=== PATIENT | female | born 1940 | race Caucasian/White ===

== ENCOUNTER → 2017-08-21 11:53 | Outpatient (CLI) | payer MEDICARE, SELFPAY ==
--- NOTE | 2017-08-21 | DI.MRI.S_ITS ---
PROCEDURE: MR LUMBAR SPINE WO CON INDICATIONS: LUMBAR SPINE PAIN TECHNIQUE: Noncontrast sagittal T1 spin echo and T2 fast echo, sagittal STIR, axial T1 and T2 fast spin echo through the lumbar spine. In cases with scoliosis, additional coronal T2 fast spin echo may be performed. COMPARISON: [facility] [place], CR, XR LUMBAR SPINE 2 OR 3 VIEWS, 05/17/2017, 10:59. [facility] [place], CR, XR LUMBAR SPINE 2 OR 3 VIEWS, 03/14/2017, 11:25. [facility], CT, L-SPINE WITHOUT CONTRAST, 06/03/2014, 10:29. [facility], MR, LUMBAR SPINE W&W/O CONTRAST, 05/13/2014, 12:41. [facility], CT, L-SPINE WITHOUT CONTRAST, 11/24/2014, 10:25. [facility], CR, XR LUMBAR SPINE 2 OR 3 VIEWS, 08/07/2017, 13:29. [facility], CR, L-SPINE 2-3 VIEWS, 01/29/2017, 9:00. FINDINGS: Image quality: Excellent. Alignment and Curvature: There is normal bony alignment. Bone Marrow: Marrow is of normal overall signal. No acute vertebral body compression fractures. Spinal Cord: Conus medullaris terminates at the L1-L2 level. Visualized cord demonstrates normal signal and size. Paraspinous Soft Tissues: No paravertebral masses. A 1 cm left adrenal nodule is partially visualized and appears unchanged compared to 06/03/2014. L1-L2: Minimal loss disc height. Mild disc desiccation. There is mild diffuse posterior disc bulge. The central canal is mildly narrowed, unchanged. No foraminal stenosis. L2-L3: Noee-xk-mdlhcnhp loss disc height and disc desiccation. There is mild diffuse posterior disc bulge and a disc osteophyte complex. Mild bilateral facet arthropathy. Moderate hypertrophy of ligamentum flavum. The central canal is severely narrowed. Moderate right and mild left foraminal stenosis. Central canal and foraminal stenosis are Increased compared to the last exam. L3-L4: Surgical fusion and discectomy. No central canal stenosis. Mild bilateral foraminal stenosis. L4-L5: Surgical fusion and discectomy. No central canal nor foraminal stenosis. L5-S1: Surgical fusion and discectomy. No central canal stenosis. Mild right foraminal stenosis. No left foraminal stenosis. IMPRESSION: 1. Multilevel degenerative and postsurgical changes as described. 2. Severe central canal stenosis at L2-L3. 3. Moderate foraminal stenosis at L2-L3 on the right, and mild foraminal stenoses at several levels as described. 4. A 1 cm left adrenal nodule, partially visualized and unchanged since 06/03/2014. Dictated by: Som Nye M.D. on 08/21/2017 at 13:02 Approved by: Som Nye M.D. on 08/21/2017 at 16:28
== END ==
PROVIDERS: Family Provider Family Medicine; PCP Family Medicine; Visit Provider Orthopaedic Surgery Orthopaedic Surgery of the Spine
DX: M51.36 Other intervertebral disc degeneration, lumbar region (principal); M48.061 Spinal stenosis, lumbar region without neurogenic claudication; M99.73 Connective tissue and disc stenosis of intervertebral foramina of lumbar region; E27.9 Disorder of adrenal gland, unspecified
CPT/HCPCS: 72148

== ENCOUNTER → 2017-11-15 09:38 | Outpatient (CLI) | payer MEDICARE, SELFPAY ==
[2017-11-15 11:58] LABS: Blood Urea Nitrogen 18 mg/dL (7-17); Calcium 10.5 mg/dL (8.4-10.2); Carbon Dioxide 27 mmol/L (22-32); Chloride 96 mmol/L (98-107); Estimated Glomerular Filt Rate > 60.0 mL/min (>60); Glucose 195 mg/dL (80-110); HEMOLYSIS < 15 (0-50); Potassium 4.8 mmol/L (3.4-5.1); Sodium 136 mmol/L (137-145)
== END ==
PROVIDERS: Family Provider Family Medicine; PCP Family Medicine; Visit Provider Internal Medicine Endocrinology, Diabetes & Metabolism
DX: E11.65 Type 2 diabetes mellitus with hyperglycemia (principal); E11.3299 Type 2 diabetes mellitus with mild nonproliferative diabetic retinopathy without macular edema, unspecified eye
CPT/HCPCS: 36415; 80048

== ENCOUNTER → 2018-05-22 11:35 | Outpatient (CLI) | payer MEDICARE, SELFPAY ==
--- NOTE | 2018-05-22 | DI.RAD.S_ITS ---
PROCEDURE: XR CHEST 2V INDICATIONS: COUGH TECHNIQUE: 2 views of the chest were acquired. COMPARISON: None. FINDINGS: Surgical changes and devices: None. Lungs and pleura: Lungs are clear. No pleural effusions or pneumothorax. Mediastinum: Mediastinal contours are normal. Heart size is normal. Bones and chest wall: No suspicious bony abnormalities. Soft tissues appear unremarkable. IMPRESSION: Normal for age, source of current cough symptoms is not seen. Dictated by: Lázaro Rahman M.D. on 05/22/2018 at 12:40 Approved by: Lázaro Rahman M.D. on 05/22/2018 at 12:40
== END ==
PROVIDERS: Family Provider Family Medicine; PCP Family Medicine; Visit Provider Family Medicine
DX: R05 Cough (principal)
CPT/HCPCS: 71046

== ENCOUNTER → 2018-07-31 10:10 | Outpatient (CLI) | payer MEDICARE, SELFPAY ==
--- NOTE | 2018-07-31 | DI.CT.S_ITS ---
PROCEDURE: CT ABDOMEN PELVIS W CON INDICATIONS: LOWER ADBOMINAL PAIN TECHNIQUE: After the administration of oral and intravenous contrast, 5 mm thick sections acquired from the diaphragms to the symphysis. 5 mm thick coronal and sagittal reformats were performed. For radiation dose reduction, the following was used: automated exposure control, adjustment of mA and/or kV according to patient size. COMPARISON: None. FINDINGS: Image quality: Excellent. ABDOMEN: Lung bases: Lung bases are clear. Heart size is normal. Solid organs: Liver is normal in size and enhancement. Gallbladder is surgically absent.. Mild resultant biliary ductal dilatation, within normal limits. Pancreas enhances normally. Spleen is normal in size and enhancement. No adrenal nodules. Kidneys are normal in size and enhancement, without hydronephrosis. Peritoneum and bowel: There is focal apparent circumferential thickening of the wall of the mid ascending colon. Reference image 48/2 and image 18/3. This is of uncertain significance, and may potentially represent focal peristalsis. The bowel is otherwise unremarkable. There is a large amount of fecal debris present. No free air, free fluid, or abscess cavity. Nodes and vessels: No retroperitoneal or mesenteric adenopathy. Aorta and inferior vena cava are normal in caliber. Diffuse vascular atherosclerotic calcifications. Miscellaneous: No ventral hernias. PELVIS: Genitourinary: Bladder wall thickness is normal. Miscellaneous: No inguinal hernias or adenopathy. Bones: No suspicious bony lesions. No vertebral body compression fractures. Remote left hemilaminectomy at L3 and L4, posterior lateral michelle and pedicle screw fixation bilaterally at L3-S1. IMPRESSION: 1. Large amount of fecal debris. 2. Apparent focal circumferential thickening in the region of the mid ascending colon. This may potentially be a true lesion or the result of peristalsis. Comment: If this patient has had recent colonoscopy, recommend direct visualization of this area via colonoscopy. Dictated by: Manuel Meraz M.D. on 07/31/2018 at 13:24 Approved by: Manuel Meraz M.D. on 07/31/2018 at 13:33
[2018-07-31 10:45] LABS: Estimated Glomerular Filt Rate > 60.0 mL/min (>60)
== END ==
LOC: CT 10:13 → LAB 10:14
PROVIDERS: Family Provider Family Medicine; PCP Family Medicine; Visit Provider Nurse Practitioner Family
DX: R10.32 Left lower quadrant pain (principal); R10.31 Right lower quadrant pain; R19.4 Change in bowel habit
CPT/HCPCS: 36415; 74177; 82565; Q9967

== ENCOUNTER 2018-11-07 12:15 | Day surgery (SDC) | payer MEDICARE, SELFPAY ==
[2018-10-24 12:28] VITALS: BMI 30.4
[2018-11-07] VITALS (9 sets, daily range): BP systolic 135–164; BP diastolic 48–70; PULSE 80–106; RESP 7–18; TEMP 36.3–36.8; O2SAT 95–98; BMI 30.4
--- NOTE | 2018-11-07 | DI.RAD.S_ITS ---
PROCEDURE: XR LUMBAR SPINE 1V INDICATIONS: L2-3 MICRODISCECTOMY TECHNIQUE: 1 view of the lumbar spine were acquired. COMPARISON: [facility], , L-SPINE 2-3 VIEWS, 01/29/2017, 9:00. FINDINGS: A lateral spot fluoroscopy image demonstrate a surgical port posterior to L2-L3. IMPRESSION: The surgical port is at the level of L2-L3. Dictated by: Som Nye M.D. on 11/07/2018 at 17:35 Approved by: Som Nye M.D. on 11/07/2018 at 17:37
[2018-11-07] MEDS: LACTATED RINGERS 1,000 ML 42 ML IV (13:11)
--- NOTE | 2018-11-07 13:29 | PM.PREOP ---
Pre-operative Note Interval Note History & Physical reviewed/Exam performed by Physician: Yes Changes to H&P: No
[2018-11-07] MEDS: CEFAZOLIN 2 GM/100 ML FROZ.PIGGY IV (14:04)
--- NOTE | 2018-11-07 14:33 | SUR.OPER ---
Prone on spine table, head in foam head support, padded chest and pelvic supports, gel pad at knees, lower legs supported by pillows; nipples, genitalia and toes free of pressure, arms secured on foam padded arm boards at <90 degrees abduction. Tape over blanket at thigh secured to table.
[2018-11-07] MEDS: BUPIVACAINE 0.25% W/ EPI 30 ML VIAL INJ (14:41)
[2018-11-07] MEDS: methylPREDNISolone acet DEPO 40 MG/ML VIAL INJ (14:49)
--- NOTE | 2018-11-07 14:53 | PM.OP.1 ---
Operative Date/Time/Diagnoses Date of procedure: 11/07/18 Time of procedure: 12:53 Pre-op diagnosis: 1. L2-3 spinal stenosis 2. Lumbar radiculopathy Post-op diagnosis: same Procedure & Clinicians Procedure: 1. L2-3 right microdiscectomy and laminotomy 2. Utilization of microsurgical technique and operating microscope Same procedure as scheduled: Yes Indications: Patient has been having chronic back pain and worsening lumbar radiculopathy. Patient failed multiple conservative management with worsening pain weakness and numbness in her lower extremity. Patient has been having difficulty performing activity of daily living. After discussing risks benefits of treatment options, patient elected proceed with surgery. Surgeon: Marilu [employer]ise [employer] Internship: Sadaf Mendez'Brien Click Yes if Unassisted: No Anesthesia Type: General Operative Notes Closure Type: primary Specimen(s): none sent Estimated Blood Loss (mL): 5 Procedure in detail: Patient was seen in the preoperative area. Risks and benefits of the surgery was discussed with the patient. Informed consent was obtained from the patient and placed in the chart. Surgical site was marked. Patient was taken to the operative room. General anesthesia was administered. Prophylactic antibiotic was given to the patient less than 30 min before the incision was made. Patient was placed into a prone position on the Jose table. Patient's back was then prepped and draped in the sterile fashion. Time-out was performed at this time. Using AP and lateral C-arm imaging the interval between L2-3 was identified and marked on patient's back. A 1 inch incision 1 in from midline was made on the right side. The fascia was incised in line with skin incision. Globus MARS retractors was placed inside the incision and docked onto the L2 lamina. Using microsurgical technique and operating microscope, a L2-3 laminotomy was performed using a Kerrison rongeur. Liagamentum flavum was resected at the site of the laminotomy. The disc space at L2-3 was identified. Microdiscectomy was performed by incising the annulus with #11 blade. Microcurettes and pituitary was used to removed herniated disc fragments of disc from the epidural space. After the microdiskectomy was completed, the area medial lateral superior and inferior to the area of the microdiskectomy was inspected and explored using a micro curette. No other impinging structure was identified. The wound was then irrigated with sterile normal saline. 40 mg Depo-Medrol was placed into the epidural space. The deep fascia was closed with 1-0 Vicryl. The subcutaneous tissue was closed with 2-0 Vicryl. The skin was closed with 4-0 Monocryl. Patient tolerated the procedure well. There were no complications. Patient was transferred recovery room in stable condition. Complications: none Condition: stable Disposition: same day surgery Plan for aftercare: Discharge to home
[2018-11-07] MEDS: INSULIN ASPART 100 UNIT/ML 10ML VIAL SUBCUT (15:20)
[2018-11-07] MEDS: HYDROCODONE/ACET 5/325 TABLET 1 TAB PO (15:31)
--- NOTE | 2018-11-07 16:40 | SUR.PHASEII ---
Discharge nurse note: VSS< O2 sat WNL, dresing with small amoutn of clear drainage no bleeding noted. No complaints of numbness and tingling to lower extremity. Discharge instructions reviewed with patient and . Discharged to motor home via wheelchair.
== END 2018-11-07 16:36 | disposition home or self-care (01) ==
PROVIDERS: Family Provider Family Medicine; PCP Family Medicine; Visit Provider Orthopaedic Surgery Orthopaedic Surgery of the Spine
PROC: (CPT 63030; principal; 2018-11-07 13:45)
DX: M51.16 Intervertebral disc disorders with radiculopathy, lumbar region (principal); M48.061 Spinal stenosis, lumbar region without neurogenic claudication; I10 Essential (primary) hypertension; E11.9 Type 2 diabetes mellitus without complications; Z79.84 Long term (current) use of oral hypoglycemic drugs; Z98.1 Arthrodesis status
CPT/HCPCS: 63030; 72020; 76000; J0690; J1030; J1100; J2250; J2405; J2704; J3010

== ENCOUNTER → 2019-10-22 11:13 | Outpatient (CLI) | payer MEDICARE, SELFPAY ==
--- NOTE | 2019-10-22 | DI.CT.S_ITS ---
PROCEDURE: CT LUMBAR SPINE WO CON INDICATIONS: Arthrodesis status TECHNIQUE: Noncontrast 3 mm thick sections acquired from the T12 level to the sacrum. Sagittal and coronal reformats were constructed. For radiation dose reduction, the following was used: automated exposure control. COMPARISON: [facility] [place], CR, XR LUMBAR SPINE 2 OR 3 VIEWS, 10/01/2018, 13:57. [facility], MR, MR LUMBAR SPINE WO CON, 08/21/2017, 12:15. [facility] [place], CR, XR LUMBAR SPINE 2 OR 3 VIEWS, 08/07/2017, 13:29. FINDINGS: Image quality: Excellent. Bones: Postsurgical changes compatible with L3-S1 TLIF. Orthopedic hardware is intact. No lucency is identified at the bone hardware interface. There is normal bony alignment. No acute vertebral body compression fractures. No suspicious lytic or blastic bony lesions. Central spinal caliber is of normal overall caliber. No pars defects. L1-L2: Disc height is normal. Mild, diffuse disc bulge. Mild bilateral facet hypertrophy. Mild narrowing of the central canal. Mild bilateral neural foraminal narrowing. No neural compression. L2-L3: Loss of disc height. Vacuum disc phenomenon. Moderate, diffuse disc bulge. Moderate to severe facet and moderate ligamentum flavum hypertrophy. Severe narrowing of the central canal. Moderate bilateral neural foraminal narrowing. Probable compression of the nerve roots of the cauda equina related to central canal narrowing. L3-L4: Status post fusion. Severe bilateral facet hypertrophy. No central canal narrowing. Moderate bilateral neural foraminal narrowing. No neural compression. L4-L5: Status post fusion. Moderate right and severe left facet hypertrophy. No central stenosis. Moderate bilateral neural foraminal narrowing. No neural compression. L5-S1: Status post fusion. Severe bilateral facet hypertrophy. Moderate narrowing of the central canal. Severe right and [id number] left neural foraminal narrowing with compression of the exiting right L5 nerve root. Soft tissues: No retroperitoneal masses or hematomas. Cholecystectomy clips noted. The visualized heart enlarged. Small hiatal hernia. Visualized aorta is normal in caliber. Scattered atherosclerotic calcifications involving the visualized abdominal and pelvic vasculature. IMPRESSION: 1. Stable postsurgical changes. 2. Multilevel degenerate disc disease. 3. Multilevel facet arthropathy. 4. Severe L2-L3 central canal narrowing with probable compression of the nerve roots of the cauda equina. 5. Severe right L5-S1 neural foraminal narrowing with compression of the exiting right L5 nerve root. Dictated by: Dianne Shaikh MD, PhD on 10/22/2019 at 15:10 Approved by: Dianne Shaikh MD, PhD on 10/22/2019 at 15:18
== END ==
PROVIDERS: Family Provider Family Medicine; PCP Family Medicine; Referring Provider Orthopaedic Surgery Orthopaedic Surgery of the Spine; Visit Provider Orthopaedic Surgery Orthopaedic Surgery of the Spine
DX: M54.5 Low back pain (principal); M51.16 Intervertebral disc disorders with radiculopathy, lumbar region; M47.26 Other spondylosis with radiculopathy, lumbar region; M47.27 Other spondylosis with radiculopathy, lumbosacral region; M48.061 Spinal stenosis, lumbar region without neurogenic claudication; M48.07 Spinal stenosis, lumbosacral region; K44.9 Diaphragmatic hernia without obstruction or gangrene; Z98.1 Arthrodesis status
CPT/HCPCS: 72131

== ENCOUNTER → 2020-01-27 09:15 | Outpatient (CLI) | payer MEDICARE, SELFPAY ==
[2020-01-27 10:20] LABS: Hematocrit 31.5 % (36-46); Hemoglobin 10.9 g/dL (12.0-16.0); Mean Corpuscular HGB Conc 34.6 % (30-36); Mean Corpuscular Hemoglobin 30.7 PG (26-34); Mean Corpuscular Volume 88.9 fL (80-100); Platelet Count 374 X10^3/uL (150-400); Red Blood Cell Count 3.54 X10^6/uL (4.0-5.2); Red Cell Distribution Width 13.2 % (11.6-14.8); White Blood Cell Count 10.1 X10^3/uL (4.5-11.0)
[2020-01-27 10:29] LABS: BUN Creatinine Ratio 18.8 (6-22); Blood Urea Nitrogen 18 mg/dL (7-17); Calcium 9.8 mg/dL (8.4-10.2); Carbon Dioxide 29 mmol/L (22-32); Chloride 103 mmol/L (98-107); Estimated Glomerular Filt Rate 56.4 mL/min (>60); Glucose 171 mg/dL (80-110); HEMOLYSIS < 15 (0-50); Potassium 4.1 mmol/L (3.4-5.1); Sodium 138 mmol/L (137-145)
[2020-01-27 11:56] LABS: Creatinine Urine Random 37.4 mg/dL; Protein (Total) Urine Random 23 mg/dL (0-12); Protein Creatinine Ratio Urine 0.61 GRAM/24H
== END ==
PROVIDERS: Family Provider Family Medicine; PCP Family Medicine; Referring Provider Student in an Organized Health Care Education/Training Program; Visit Provider Student in an Organized Health Care Education/Training Program
DX: N05.9 Unspecified nephritic syndrome with unspecified morphologic changes (principal); D70.9 Neutropenia, unspecified; D63.1 Anemia in chronic kidney disease; R80.9 Proteinuria, unspecified
CPT/HCPCS: 36415; 80048; 82570; 84156; 85027

== ENCOUNTER → 2020-03-09 10:55 | Outpatient (CLI) | payer MEDICARE, SELFPAY ==
--- NOTE | 2020-03-09 | DI.US.S_ITS ---
PROCEDURE: US RENAL COMPLETE INDICATIONS: Chronic kidney disease, stage 3 unspecified TECHNIQUE: Real-time scanning was performed of the kidneys and bladder, with image documentation. COMPARISON: [facility], CT, CT ABDOMEN PELVIS W GHAZALA, 07/31/2018, 11:58. FINDINGS: Kidneys: Kidneys are normal in size. Right kidney measures 11.4 cm long; left kidney measures 12.0 cm long. Right renal cortical thickness is 1.0 cm; left renal cortical thickness is 1 point cm. Renal cortical echotexture is normal. No hydronephrosis or nephrolithiasis. No suspicious solid mass lesions. Bladder: Pre-void bladder volume is 238 mL. Post-void residual is 115 mL. Pre-void images demonstrate no intraluminal masses or stones. On pre-void images, both ureteral jets are noted with color Doppler interrogation. (Of note, ureteral jets may not be detectable in up to 25% of cases due to insufficient differences in specific gravity between ureteral and bladder urine). Miscellaneous: No free pelvic fluid. IMPRESSION: 1. Normal ultrasound appearance of kidneys. No hydronephrosis. 2. A 115 mL postvoid residual in the urinary bladder. Dictated by: Som Nye M.D. on 03/09/2020 at 16:41 Approved by: Som Nye M.D. on 03/09/2020 at 16:44
== END ==
PROVIDERS: Family Provider Family Medicine; PCP Family Medicine; Referring Provider Student in an Organized Health Care Education/Training Program; Visit Provider Student in an Organized Health Care Education/Training Program
DX: N18.30 Chronic kidney disease, stage 3 unspecified (principal)
CPT/HCPCS: 76770

== ENCOUNTER → 2020-07-27 08:07 | Outpatient (CLI) | payer MEDICARE, SELFPAY ==
[2020-07-27 20:12] LABS: Hematocrit 32.9 % (36-46); Hemoglobin 11.1 g/dL (12.0-16.0)
[2020-07-27 20:17] LABS: BUN Creatinine Ratio 18.2 (6-22); Blood Urea Nitrogen 18 mg/dL (7-17); Calcium 10.1 mg/dL (8.4-10.2); Carbon Dioxide 28 mmol/L (22-32); Chloride 101 mmol/L (98-107); Estimated Glomerular Filt Rate 54.2 mL/min (>60); Glucose 163 mg/dL (80-110); HEMOLYSIS < 15 (0-50); Potassium 4.2 mmol/L (3.4-5.1); Sodium 139 mmol/L (137-145)
[2020-07-27 20:42] LABS: Creatinine Urine Random 55.8 mg/dL; Protein (Total) Urine Random 12 mg/dL (0-12); Protein Creatinine Ratio Urine 0.21 GRAM/24H
[2020-07-29 08:45] LABS: Parathyroid Hormone Int 24 pg/mL (15-65)
== END ==
PROVIDERS: Family Provider Family Medicine; PCP Family Medicine; Visit Provider Student in an Organized Health Care Education/Training Program
DX: N05.9 Unspecified nephritic syndrome with unspecified morphologic changes (principal)
CPT/HCPCS: 80048; 82570; 83970; 84156; 85014; 85018

== ENCOUNTER → 2021-01-12 10:57 | Outpatient (CLI) | payer MEDICARE, SELFPAY ==
--- NOTE | 2021-01-12 11:00 | DI.US.S_ITS ---
PROCEDURE: US PELVIC COMPLETE INDICATIONS: PELVIC PAIN TECHNIQUE: Real-time scanning was performed of the pelvic organs, with image documentation. Additional endovaginal scanning was necessary due to incomplete visualization of the adnexal and endometrial structures by transabdominal scanning. COMPARISON: [facility], CT, CT ABDOMEN PELVIS WITH CONTRAST, 12/09/2020, 12:26. [facility], US, US PELVIC+TRANSVAG, 11/15/2016, 11:36. FINDINGS: Uterus: Uterus is normal in size at 4.6 x 2.2 x 2.8 cm. The uterus demonstrates age-appropriate atrophy. Calcifications can be seen within the uterus. The endometrium measures 4 mm in combined thickness. Incidental note is made of nabothian cysts. Ovaries: Neither ovary is well seen on this study. No adnexal masses are seen on either side. Other: No pathologic free abdominal or pelvic fluid. A postvoid residual of 114 cc is measured. IMPRESSION: Unremarkable pelvic ultrasound for age. The endometrial stripe measures within normal limits for age at 4 mm. Moderate postvoid residual, 114 cc. Dictated by: Prince Suarez M.D. on 01/12/2021 at 14:19 Approved by: Prince Suarez M.D. on 01/12/2021 at 14:21
== END ==
PROVIDERS: Family Provider Family Medicine; PCP Family Medicine; Referring Provider Obstetrics & Gynecology; Visit Provider Obstetrics & Gynecology
DX: R10.2 Pelvic and perineal pain (principal)
CPT/HCPCS: 76830; 76856

== ENCOUNTER → 2021-03-21 10:55 | Outpatient (CLI) | payer MEDICARE, SELFPAY ==
--- NOTE | 2021-03-21 | DI.MRI.S_ITS ---
PROCEDURE: MR LUMBAR SPINE WO CON INDICATIONS: Radiculopathy, lumbar region TECHNIQUE: Noncontrast sagittal T1 spin echo and T2 fast echo, sagittal STIR, axial T1 and T2 fast spin echo through the lumbar spine. In cases with scoliosis, additional coronal T2 fast spin echo may be performed. COMPARISON: [facility] [place], CR, XR LUMBAR SPINE 2 OR 3 VIEWS, 10/01/2018, 13:57. [facility], , MR LUMBAR SPINE WO CON, 08/21/2017, 12:15. FINDINGS: Image quality: Excellent. Alignment and Curvature: There is normal bony alignment. Bones: Postsurgical changes compatible L3-S1 posterior fusion and left L3-L4 and L4-L5 laminotomies. Modic type 1 reactive endplate changes noted adjacent to the L2-L3 disc. No acute vertebral body compression fractures. Spinal Cord: Conus medullaris terminates at the L2 level. Visualized cord demonstrates normal signal and size. Paraspinous Soft Tissues: No paravertebral masses. T12-L1: Loss of disc signal. Mild, diffuse disc bulge. No central stenosis. No neural foraminal narrowing. No neural compression. L1-L2: Loss of disc signal. Mild, diffuse disc bulge. Mild bilateral facet hypertrophy. Mild narrowing of the central canal. No neural foraminal narrowing. No neural compression. L2-L3: Loss of disc signal and height. Moderate, diffuse disc bulge. Moderate bilateral facet hypertrophy. Moderate ligamentum flavum hypertrophy. Severe narrowing of the central canal with compression of the nerve roots of the cauda equina. Mild to moderate bilateral neural foraminal narrowing. L3-L4: Status post fusion. No central stenosis. Moderate bilateral neural foraminal narrowing. No neural compression. L4-L5: Status post fusion. Mild bilateral facet hypertrophy. No central stenosis. Mild to moderate bilateral neural foraminal narrowing. No neural compression. L5-S1: Status post fusion. Mild, diffuse disc bulge. Moderate bilateral facet hypertrophy. Mild narrowing of the central canal. Mild bilateral neural foraminal narrowing. No neural compression. IMPRESSION: 1. Postsurgical changes. 2. Multilevel degenerative disc disease. 3. Multilevel facet arthropathy. 4. Severe L2-L3 central canal narrowing with compression of the nerve roots of the cauda equina. 5. No severe neural foraminal narrowing. Dictated by: Dianne Shaikh MD, PhD on 03/21/2021 at 15:41 Approved by: Dianne Shaikh MD, PhD on 03/21/2021 at 15:45
== END ==
PROVIDERS: Family Provider Family Medicine; PCP Family Medicine; Referring Provider Physical Medicine & Rehabilitation Pain Medicine; Visit Provider Physical Medicine & Rehabilitation Pain Medicine
DX: M51.16 Intervertebral disc disorders with radiculopathy, lumbar region (principal); M51.17 Intervertebral disc disorders with radiculopathy, lumbosacral region; M47.26 Other spondylosis with radiculopathy, lumbar region; M47.27 Other spondylosis with radiculopathy, lumbosacral region; M48.061 Spinal stenosis, lumbar region without neurogenic claudication; M48.07 Spinal stenosis, lumbosacral region; Z98.1 Arthrodesis status
CPT/HCPCS: 72148

== ENCOUNTER → 2021-08-08 08:12 | Outpatient (CLI) | payer MEDICARE, SELFPAY ==
[2021-08-08 20:53] LABS: COVID19 - ORCAS (NP or Nasal) Negative (Negative)
== END ==
PROVIDERS: Family Provider Family Medicine; PCP Family Medicine; Visit Provider Family Medicine
DX: Z20.822 Contact with and (suspected) exposure to COVID-19 (principal)
CPT/HCPCS: C9803; U0003

== ENCOUNTER 2021-08-10 09:28 | Inpatient (IN) | payer MEDICARE, SELFPAY ==
[2021-08-05 07:21] VITALS: BMI 31.2
[2021-08-10] VITALS (13 sets, daily range): BP systolic 136–178; BP diastolic 46–78; PULSE 56–75; RESP 9–18; TEMP 35.5–36.9; O2SAT 94–100; BMI 31.2
[2021-08-10] MEDS: LACTATED RINGERS 1,000 ML 84 ML IV ×3 (12:08→17:03)
--- NOTE | 2021-08-10 12:58 | PM.PREOP ---
Pre-operative Note COVID-19 COVID-19 status: Negative Result date/Date tested (Pos, Neg/Pending): 08/09/21 Criteria for continued procedure: Expected advancement of disease process, Possibility delay results in more complex future surgery or treatment, Increased loss of function, Continuing or worsening of significant or severe pain and Deterioration of the patient's condition or overall health Interval Note History & Physical reviewed/Exam performed by Physician: Yes Changes to H&P: No
[2021-08-10] MEDS: CEFAZOLIN 2 GM/20 ML SYRINGE IV ×2 (14:00→20:15)
[2021-08-10] MEDS: BUPIVACAINE LIPOSOME 266 MG/20 ML VIAL INJ (14:53)
[2021-08-10] MEDS: BUPIVACAINE 0.25% (PF) 60 ML, EPINEPHrine 0.3 MG INJ (14:54)
--- NOTE | 2021-08-10 17:02 | DI.RAD.S_ITS ---
PROCEDURE: XR LUMBAR SPINE 2-3V INDICATIONS: L2-3 TLIF TECHNIQUE: 3 operative views of the lumbar spine were acquired. COMPARISON: [facility], [place], XR LUMBAR SPINE 1V, 11/07/2018, 14:33. FINDINGS: 3 operative C-arm images were utilized to help with extending a multilevel lumbar orthopedic fixation, which now includes the level above the previous fixation. There is bilateral michelle and pedicle screw fixation and interbody disc spacer placement. IMPRESSION: Operative imaging utilized for lumbar fusion surgery. Dictated by: Manuel Meraz M.D. on 08/10/2021 at 17:13 Approved by: Manuel Meraz M.D. on 08/10/2021 at 17:15
--- NOTE | 2021-08-10 17:12 | PM.OP.1 ---
Operative Date/Time/Diagnoses Date of procedure: 08/10/21 Time of procedure: 14:00 Pre-op diagnosis: 1. L2-3 spinal stenosis with neurogenic claudication 2. History of L3-S1 fusion with instrumentation Post-op diagnosis: same Procedure & Clinicians Procedure: 1. L2-3 posterolateral and posterior interbody fusion 2. L2-3 posterior interbody cage placement 3. L3-4 revision laminectomy with exploration of fusion 4. L2-3, L3-4 posterior segmental instrumentation with pedicle screw placement 5. L3-4 posterolatearl fusion 6. [place] of bone marrow from iliac crest through a separate incision 7. Utilization of microsurgical technique and operating microscope Same procedure as scheduled: Yes Indications: Patient has been having chronic back pain and worsening lumbar radiculopathy and symptoms of neurogenic claudication. Patient had history of lumbar fusion and has been doing well until approximately 9 months ago. Patient has symptoms of neurogenic claudication along with radiculopathy. Patient's MRI showed significant progress L2-3 spinal stenosis due to adjacent level disease. Patient failed multiple conservative management with worsening pain weakness and numbness in her lower extremity. Patient has been having difficulty performing activity of daily living. After discussing risks benefits of treatment options, patient elected proceed with surgery. Surgeon: Marilu Moise [employer] Specialist: Sharon Jennings Click Yes if Unassisted: No Anesthesia Type: General Operative Notes Closure Type: primary Specimen(s): none sent Prosthetic devices, grafts, tissues, transplants, or devices: Globus Revolve screws, Globus connecting hardware for revision posterior instrumentation Applied: catheter Estimated Blood Loss (mL): 50 Blood products transfused: none Procedure in detail: Patient was seen in the preoperative area. Risks and benefits of the surgery was discussed with the patient. Informed consent was obtained from the patient and placed in the chart. Surgical site was marked. Patient was taken to the operative room. General anesthesia was administered. Prophylactic antibiotic was given to the patient less than 30 min before the incision was made. Patient was placed into a prone position on the Jose table. Patient's back was then prepped and draped in the sterile fashion. Time-out was performed at this time. Using patient's previous scar incision was made over the L3-4 interval on the right side. Fascia was incised in line with skin incision. Patient's previously placed hardware over the L3-4 level was identified by dissecting down to the level the hardware using a Bovie and a Carr. The L3-L4 Tulip and rods was exposed and freed up of any scar tissue and calcified fusion mass in order to attach extension of posterior hardware. The Globus and MARS retractors was then placed into the wound and docked onto the L2 lamina using C-arm guidance. Using microsurgical technique and operating microscope a laminectomy facetectomy was performed by removing the L2 lamina and the L2-3 facet. The disc space at L2-3 level was identified next. And a total diskectomy was performed at L2-3 level. The endplates were decorticated using a rasp and shaver. The total diskectomy and decortication was performed at L2-3 level in order to to accomplish a L2-3 fusion. The local bone from the laminectomy and facetectomy was saved for local bone grafting. After the total diskectomy and decortication was completed, Globus Trifecta bone graft material was combined with local bone that was harvested earlier. At this time, a separate skin is incision was made over the iliac crest. A Jamshidi needle was inserted into the iliac crest through a separate skin incision. 5 cc of bone marrow aspiration was obtained through the separate skin incision using a Jamshidi needle from the iliac crest. The bone marrow aspiration was combined with local bone and the Trifecta bone grafting material. The bone grafting material was placed into the L2-3 interbody space along with a expandable cage. The cage was expanded to its maximum height using the torque limiting screwdriver. At this time a mirror image incision was made on the left side. The fascia was incised in line with the skin incision. Patient's previously placed hardware on the left side was then exposed in the same fashion as it was on the right side. The hardware was also found to have good purchase. The fusion mass on the left side was exposed by performing a left-sided hemilaminectomy at L3-4 level. The hemilaminectomy was performed using the Kerrison rongeur to undercut the lamina as well removing additional epidural scar tissue for purpose of decompressing the epidural space. The fusion mass was explored and was found have visible motion indicating pseudoarthrosis at L3-4 level. Globus MARS retractor was inserted and docked onto the L2-3, L3-4 posterolateral gutter. Using the power drill, posterior-lateral decortication was performed at L2-3, L3-4 level until bleeding cortical bone was identified. The remaining bone grafting material was placed into the L2-3, L3-4 posterior lateral gutter he order to accomplish posterolateral fusion at the L2-3, L3-4 level. Using the double C-arm technique, pedicle screws were placed into the L2 pedicles on the right side. This was done by placing the Jamshidi needle into the pedicles, then placing the guidewires over the Jamshidi needle, and finally placing the cannulated screws over the guidewires on the right side. A L2 pedicle screw was placed into the left side using the same technique over time she and guidewire. The UNI5us expansion system was used to attach the L2 pedicle screw to the michelle between L3-4 pedicle on both sides. After all locking bolt was tightened down using torque limiting drivers, locking michelle was then placed into the tulips and locked into place used torque limiting screwdriver. After the pedicle screws were placed, 2 titanium rods was locked into the heads of the pedicle screws using locking caps and torque limiting screwdriver. All hardware was found to have good purchase. After all the hardware was placed, and confirmed with AP and lateral C-arm imaging, the wound was then irrigated with sterile normal saline and packed with Ray-Rosemarie gauze for 3 min to accomplish hemostasis. After the gauze was removed the deep fascia was closed with #1 Vicryl suture. The subcutaneous layer was closed with 2-0 Vicryl. The skin was closed with skin ricky. Patient tolerated the procedure well. There were no complications. Neuro monitoring was used throughout the entire case. Complications: none Post-operative Condition: stable Disposition: PACU Plan for aftercare: Admit to inpatient hospital
[2021-08-10] MEDS: HYDROCODONE/ACET 5/325 TABLET 1 TAB PO ×2 (17:40→18:12)
[2021-08-10] MEDS: fentaNYL 100 MCG/2 ML INJ IV ×2 (18:01→18:12)
--- NOTE | 2021-08-10 18:43 | SUR.PHASEI ---
Report called to AC RN including pain, a&o, davis, oral intake, ericka ashley. VSS, Patient appears comfortable. Dressing CDI
--- NOTE | 2021-08-10 19:17 | PC.NURSE ---
Pt arrived from PACU at 1855, A&Ox4, c/o 8/10 back pain. VSS on RA, no SOB, lungs CTA. Numbness and tingling to bilat LE at baseline, unchanged since surgery, CMS otherwise intact. Kennedy catheter draining light yellow urine. Pt oriented to vital sign schedule, call light and room. Will continue to monitor.
[2021-08-10] MEDS: SODIUM CHLORIDE 0.9% 1,000 ML 100 ML IV (20:14)
[2021-08-10] MEDS: SENNOSIDES 8.6 MG TABLET 17.2 MG PO (20:15)
[2021-08-10] MEDS: DOCUSATE 100 MG CAPSULE PO (20:15)
[2021-08-10] MEDS: ATORVASTATIN 20 MG TABLET PO (20:15)
[2021-08-10] MEDS: METOPROLOL IR 25 MG TABLET PO (20:15)
[2021-08-10] MEDS: LACTOBACILLUS ACIDOPHILUS TABLET 2 EACH PO (20:15)
[2021-08-11 00:30] VITALS: BP 146/66; PULSE 63; RESP 17; TEMP 36.1; O2SAT 98
[2021-08-11] MEDS: CEFAZOLIN 2 GM/20 ML SYRINGE IV (04:58)
[2021-08-11] MEDS: SODIUM CHLORIDE 0.9% 1,000 ML 100 ML IV (05:01)
[2021-08-11 05:18] VITALS: BP 151/57; PULSE 75; RESP 16; TEMP 36.3; O2SAT 97
[2021-08-11 06:10] LABS: Hematocrit 28.4 % (36-46); Hemoglobin 9.9 g/dL (12.0-16.0)
[2021-08-11 07:59] VITALS: BP 146/67; PULSE 76; RESP 16; O2SAT 95
--- NOTE | 2021-08-11 07:59 | PM.PNPO.1 ---
Subjective Subjective Date Patient Seen: 08/11/21 Time Patient Seen: 07:59 Interval history: Lying in bed, complaining of 'sciatic' pain that goes across low back and into legs, similar to before surgery. States that she has a routine for dealing with this pain that involves getting up and walking around. Has not been OOB yet. H/o diabetes; says she gets quite ill if FBG below 110. Exam Vital Signs (past 8 hours): - 08/11/21 00:30 08/11/21 05:18 Temperature 97 F L 97.3 F L Pulse Rate 63 75 Respiratory Rate 17 16 Blood Pressure 146/66 H 151/57 H Pulse Oximetry 98 97 Oxygen Delivery Method Room Air Narrative Exam Narrative: 5/5 strength in hip flexors, quadriceps, hamstrings, DF, PF, EHL bilaterally. Sensation to light touch intact in BLE. Calves soft, compressible, nontender and without palpable cords or masses. Low back dressing placed intraoperatively is CDI. Objective Labs Result Diagrams: 08/11/21 05:37 Labs: Laboratory Results - last 24 hr 08/11/21 05:37 Hgb 9.9 L Hct 28.4 L PFSH Medical History (Updated 08/11/21 @ 10:24 by Sharon Jennings PA-C) Anemia (~2010) Anemia in chronic kidney disease Chicken pox Chronic back pain (~2011) Chronic pruritic rash in adult Diabetes Diabetic retinopathy Edema GERD (gastroesophageal reflux disease) HLD (hyperlipidemia) HTN (hypertension) Iron deficiency anemia Kidney disease (~2018) Measles Mumps Obesity (BMI 30.0-34.9) Psoriasis Renal cyst, right Stage 2 chronic kidney disease Type 2 diabetes mellitus (~1988) Unspecified osteoarthritis, unspecified site (~2019) Surgical History (Updated 08/11/21 @ 10:24 by Sharon Jennings PA-C) Anesthesia History of back surgery History of cataract removal with insertion of prosthetic lens (~2014) History of cholecystectomy History of colonoscopy History of laparoscopy (~1977) History of lumbar fusion (01/29/17) Hx of microdiscectomy (11/07/18) Hx of tonsillectomy S/P thyroid biopsy (04/25/17) Family History (Updated 02/13/21 @ 21:27 by Raven Mariee) Father Diabetes mellitus Brother Diabetes mellitus Grandmother Diabetes mellitus Grandfather Stroke Social History household members: spouse Smoking Status: Never smoker alcohol intake: never Assessment & Plan Post-op Assessment and plan (1) S/P lumbar fusion: Assessment and Plan narrative: PT. D/c susan. Pts chart states h/o reaction to oxycodone, will continue hydrocodone/APAP, d/c plain APAP, add Vistaril for muscle spasm. May benefit from short course of steroids if leg pain continues. Current plan to d/c home tomorrow if she progresses well w/ PT today. (2) Acute postoperative anemia due to expected blood loss: Assessment and Plan narrative: Asymptomatic, no intervention needed at this time. (3) Diabetes: Assessment and Plan narrative: Pt has received glipizide and metformin, refused insulin this morning. Fingersticks have ranged 161-217 since admission. Continue home meds. (4) Essential hypertension: Assessment and Plan narrative: Continue home meds. (5) Obesity (BMI 30.0-34.9): Postoperative Procedures: Procedures Operation Date: 08/10/21 11:15 Actual Procedure Side Surgeon p L2-3 TLIF w/ extension of hardware L2 to Previous L3-S1 fusion Marilu Moise MD Postoperative day: 1 Quality VTE Deep Vein Thrombosis/Pulmonary Embolism Present on Admission: No
[2021-08-11] MEDS: glipiZIDE 5 MG TABLET 10 MG PO (08:43)
[2021-08-11] MEDS: ASPIRIN 81 MG CHEW TAB PO (08:44)
[2021-08-11] MEDS: DOCUSATE 100 MG CAPSULE PO (08:44)
[2021-08-11] MEDS: LACTOBACILLUS ACIDOPHILUS TABLET 2 EACH PO (08:44)
[2021-08-11] MEDS: HYDROCODONE/ACET 10/325 TABLET 1 TAB PO (08:44)
[2021-08-11 08:45] VITALS: BP 146/67; PULSE 76
[2021-08-11] MEDS: METOPROLOL IR 25 MG TABLET PO (08:45)
[2021-08-11] MEDS: lisinopriL 20 MG TABLET PO (08:45)
[2021-08-11] MEDS: METFORMIN HCL 500 MG TABLET 1000 MG PO (08:45)
[2021-08-11] MEDS: hydrOXYzine pamoate 25 MG CAPSULE PO (08:46)
--- NOTE | 2021-08-11 09:42 | CM.DANOTE ---
Addendum entered by ALBERTO Guadarrama 08/11/21 13:51: ADD: PT recommends Home w/family, patient eager to DC tomorrow Original Note: Initial DCP Assessment Note Pt is a 81 yo female, resident of [facility], now POD#1 from spinal surgery by Dr Moise PCP: Karel Doe Payer: MCR/[employer] Reviewed chart; Therapy evals pending today for patient. Patient has planned for return home w/family to assist CM team following closely and will plan to assess for DC needs after therapy team assesses and provides dispo recs ALBERTO Philip Discharge Planning/Care Management CM Discharge Assessment Start: 08/11/21 09:31 Freq: Status: Active Protocol: Document 08/11/21 09:31 ISH (Rec: 08/11/21 09:42 ISH [id number]) Discharge Planning Assessment Assigned Games Dealer ALBERTO Medina DPOA/Assigned Designee Name Rafal () Contact Information [phone] Advance Directives? Yes Advance Directives on File Yes History Provided By Patient,Medical Record Prior Living Arrangements House Household Members spouse Type of transporation used prior to Relies on Others admit Comment [facility] Independent with ADL's Yes: Poor activity tolerance Is patient alert and oriented? Yes Comment TBD. Therapy evals pending Discharge Plan Home Transportation Arrangement Family Referrals Initiated None needed Additional Comment Awaiting therapy evals today
--- NOTE | 2021-08-11 10:31 | PT.IIE ---
Current Diagnoses Acute posthemorrhagic anemia (08/10/21) Type 2 diabetes mellitus without complications (08/10/21) Obesity, unspecified (08/10/21) Essential (primary) hypertension (08/10/21) Spinal stenosis, lumbar region with neurogenic claudication (08/10/21) Arthrodesis status (08/10/21) Surgery Performed Operation Date: 08/10/21 11:15 Actual Procedures p L2-3 TLIF w/ extension of hardware L2 to Previous L3-S1 fusion - Marilu Moise MD Surgical History (Last Updated 08/05/21 @ 07:24 by Mayra Mendiola RN) Anesthesia Medical History (Last Updated 08/11/21 @ 10:24 by Sharon Jennings PA-C) Anemia (~2010) Anemia in chronic kidney disease Chicken pox Chronic back pain (~2011) Chronic pruritic rash in adult Diabetes Diabetic retinopathy Edema GERD (gastroesophageal reflux disease) HLD (hyperlipidemia) HTN (hypertension) Iron deficiency anemia Kidney disease (~2018) Measles Mumps Obesity (BMI 30.0-34.9) Psoriasis Renal cyst, right Stage 2 chronic kidney disease Type 2 diabetes mellitus (~1988) Unspecified osteoarthritis, unspecified site (~2019) Physical Therapy Inpatient Evaluation/Re-Eval M1 PT/OT-IP Prior Functional Status Start: 08/11/21 10:17 Freq: Status: Active Protocol: Document 08/11/21 10:18 BC (Rec: 08/11/21 10:31 BC [id number]) Medical Review Prior Functional Status Medical History Reviewed Yes Mobility and Gait Independent with ambulation on home. Activities of Daily Living and IADL's Independent Prior Functional Level (Other details) She enjoys caring for her dog. Lives with spouse. Retired bank employee. Reports multiple family members ( nephews and KYLE) that live a few minutes from her and most are either closed circuit screen watcher/firefighters. Social History Household Members spouse Living Arrangements House Number of Floors (Floors) Two Floors Number of Stairs To Enter/Railing? 1 flight of stairs to enter home. Landing at top prior to 4 more steps. Bilateral railing. Home Equipment Front Wheel Walker,Straight Cane Employment Status Retired M2 PT-IP Current Condition Start: 08/11/21 10:17 Freq: Status: Active Protocol: Document 08/11/21 10:18 BC (Rec: 08/11/21 10:31 [id number]) Physical Therapy Current Condition Current Condition Evaluation Date 08/11/21 Treatment Diagnosis gait abnormality Onset Date 08/10/21 M3 PT-IP Subjective Start: 08/11/21 10:17 Freq: Status: Active Protocol: Document 08/11/21 10:18 BC (Rec: 08/11/21 10:31 [id number]) Subjective Physical Therapy Visit Type Type Initial Evaluation Visit Start Time 08:50 Visit Stop Time 09:20 Total Visit Minutes 25 Physical Therapy Visit Comments Patient Comments Pt reports sciatica in bilateral hips and thinks she has fibromyalgia. Patient Goals States she hopes to go home tomorrow. Therapy Pain Assessment Pain When Pain Assessed At Rest Pain Present Pain Present Pain Reported Location Lower Back Intensity 4 Description Aching,Burning M4 PT-IP Mobility and Gait Start: 08/11/21 10:17 Freq: Status: Active Protocol: Document 08/11/21 10:18 (Rec: 08/11/21 10:31 [id number]) PT-Bed Mobility Assessment Scooting Scooting to Edge of Bed Independent Scooting Up and Down in Bed Independent PT-Transfer Assessment Sit to and From Stand Sit to and from Stand Standby Assistance Equipment Transfer Assistive Device Gait Belt,Front Wheeled Walker Transfers Transfer Destination Chair Transfer Technique Stand Step Pivot Transfer Ability Level of Assist Standby Assistance Comments Mobility Comments Using BUE's for support/ balance but not significant amount of pushing/pulling noted. Gait Assessment Gait Gait Assistance Required: Standby Assistance Distance (Feet) 20 Assistive Devices Assistive Device Gait Belt,Front Wheeled Walker Orthotic/Prosthetic Devices or Brace: No Gait Deviations General Gait Pattern Decreased Stride Length, Decreased Feet Clearance,Wide Based Gait Factors Limiting Gait Function Factors Limiting Gait Function Pain Comments Gait Comments Ambulation rachel is slow but no LOB. Reports pain improves with upright stance and sitting in chair vs EOB. PT-Balance Assessment Sitting Balance and Reactions Static Sitting Balance Ability Normal Dynamic Sitting Balance Ability Normal Standing Balance and Reactions Static Standing Balance Ability Good Dynamic Standing Balance Ability Fair Device Used FWW M5 PT-IP Objective Assessments Start: 08/11/21 10:17 Freq: Status: Active Protocol: Document 08/11/21 10:18 (Rec: 08/11/21 10:31 [id number]) Orientation Orientation/Cognition Level of Alertness Alert Orientation Name,Date,Place,Situation Safety Awareness Understands Safety Issues Gross Range of Motion Upper Extremity ROM Assessment Within Functional Limits Lower Extremity ROM Assessment Within Functional Limits Strength Upper Extremity Strength Assessment Within Functional Limits Lower Extremity Strength Assessment Within Functional Limits Comments Strength Comments Grossly functional UE strength - no formal MMT BLE strength 4+ to 5/5 Coordination Assessment Gross Coordination Gross Coordination WNL Sensation Assessment Comments Sensation Comments Reports burning/tingling across pelvis bilaterally. Calls this sciatica and states she has had it for awhile. Muscle Tone Muscle Tone WNL Yes M6 PT-IP Treatment Start: 08/11/21 10:17 Freq: Status: Active Protocol: Document 08/11/21 10:18 BC (Rec: 08/11/21 10:31 [id number]) Physical Therapy Treatment Education Education Provided Precautions,Post-Op Packet, Safety Brace Education Patient M7 PT-IP Assessment and Plan Start: 08/11/21 10:17 Freq: Status: Active Protocol: Document 08/11/21 10:18 BC (Rec: 08/11/21 10:31 [id number]) PT Summary Assessment and Plan Potential Rehabilitation Potential Excellent Status of Condition at Evaluation Stable Summary Impairments Pain Progress Towards Goals Progressing Toward Goals Assessment Summary Pt admitted s/p L2-3 fusion and laminectomy. Prior fusion of L3 to S1. Pt reports a long hx of spinal surgeries ~5-6. She lives with spouse in a two story home with a full flight to enter the home. She has family within minutes which include several firemen and closed circuit screen watcher. She has a FWW and SPC. Pt reports her PLOF as independent with intermittent use of a SPC/walking stick. CLOF: Pt is requiring just SBA for safety and cues on precautions with transfers and ambulation in room. Pt's breakfast arrived so PT to return in PM to assess stairs and add'l gait distance. Anticipate d/c to home with said family support and her current DME she reports having . Pt remained in chair with call light/phone and tray table in reach. Goals Bed Mobility Goal Standby Assistance Transfer Goal Independent Gait Goal Independent Gait Distance 100 Other Goals Pt will ascend/descend full flight of stairs with railing and CGA to SBA. Days to Meet Goals 3 Frequency of Treatment Frequency Of Treatment Twice a Day Treatment Plan Physical Therapy Treatment Plan Bed Mobility Training,Transfer Training,Gait Training, Therapeutic Exercise,Balance Retraining,Post Op Education, Discharge Planning, Neuromuscular Re-ed, Coordination Retraining Precautions Lumbar Precautions Log Roll,No Twisting,Limit Bending,Lifting Restriction of 10 lbs,Gait Belt above Incisional Area Recommendations To Nursing Amount of Assist Needed Standby Assistance Discharge Recommendations PT Discharge Recommendations Home with Assistance Transportation Needs at Discharge Private Vehicle
--- NOTE | 2021-08-11 10:50 | OT.IP.EVAL ---
Current Diagnoses Acute posthemorrhagic anemia (08/10/21) Type 2 diabetes mellitus without complications (08/10/21) Obesity, unspecified (08/10/21) Essential (primary) hypertension (08/10/21) Spinal stenosis, lumbar region with neurogenic claudication (08/10/21) Arthrodesis status (08/10/21) Surgery Performed Operation Date: 08/10/21 11:15 Actual Procedures p L2-3 TLIF w/ extension of hardware L2 to Previous L3-S1 fusion - Marilu Moise MD Past Medical History (Last Updated 08/11/21 @ 10:24 by Sharon Jennings PA-C) Anemia (~2010) Anemia in chronic kidney disease Chicken pox Chronic back pain (~2011) Chronic pruritic rash in adult Diabetes Diabetic retinopathy Edema GERD (gastroesophageal reflux disease) History of back surgery History of cataract removal with insertion of prosthetic lens (~2014) History of cholecystectomy History of colonoscopy History of laparoscopy (~1977) History of lumbar fusion (01/29/17) HLD (hyperlipidemia) HTN (hypertension) Hx of microdiscectomy (11/07/18) Hx of tonsillectomy Iron deficiency anemia Kidney disease (~2018) Measles Mumps Obesity (BMI 30.0-34.9) Psoriasis Renal cyst, right S/P thyroid biopsy (04/25/17) Stage 2 chronic kidney disease Type 2 diabetes mellitus (~1988) Unspecified osteoarthritis, unspecified site (~2019) Surgical History (Last Updated 08/05/21 @ 07:24 by Mayra Mendiola RN) Anesthesia History of back surgery History of cataract removal with insertion of prosthetic lens (~2014) History of cholecystectomy History of colonoscopy History of laparoscopy (~1977) History of lumbar fusion (01/29/17) Hx of microdiscectomy (11/07/18) Hx of tonsillectomy S/P thyroid biopsy (04/25/17) Occupational Therapy Inpatient Evaluation/Re-Eval M1 PT/OT-IP Prior Functional Status Start: 08/11/21 10:17 Freq: Status: Active Protocol: Document 08/11/21 10:18 BC (Rec: 08/11/21 10:31 BC [id number]) Medical Review Prior Functional Status Medical History Reviewed Yes Mobility and Gait Independent with ambulation on home. Activities of Daily Living and IADL's Independent Prior Functional Level (Other details) She enjoys caring for her dog. Lives with spouse. Retired bank employee. Reports multiple family members ( nephews and KYLE) that live a few minutes from her and most are either tallier/firefighters. Social History Household Members spouse Living Arrangements House Number of Floors (Floors) Two Floors Number of Stairs To Enter/Railing? 3 steps bilateral rail, melanie and another 3 steps with bilateral rails to get into the house. 3 steps with left rail to get into the motorhome. Home Equipment Front Wheel Walker,Straight Cane Employment Status Retired M2 OT-IP Current Condition Start: 08/11/21 14:44 Freq: Status: Active Protocol: Document 08/11/21 10:11 [facility] (Rec: 08/11/21 15:01 [facility] [id number]) Occupational Therapy Current Condition Current Condition Evaluation Date 08/11/21 Treatment Diagnosis s/p L2-3 TLIF with extension of hardware L2 to previous L3- S1 fusion Diagnosis Onset Date 08/10/21 Post Operative Precautions Lumbar Precautions Log Roll,No Twisting,Limit Bending,Lifting Restriction of 10 lbs,Gait Belt above Incisional Area M3 OT- IP Subjective and Pain Start: 08/11/21 14:44 Freq: Status: Active Protocol: Document 08/11/21 10:11 [facility] (Rec: 08/11/21 15:01 [facility] [id number]) OT- Subjective Occupational Therapy Visit Type Type Initial Evaluation Visit Start Time 10:11 Visit Stop Time 10:50 Total Visit Minutes 39 Occupational Therapy Visit Comments Patient Comments Pt's in the room and pt agreed to do OT eval. Patient/Caregiver Goals TO go home. OT Pain Assessment Pain When Pain Assessed At Rest Pain Present Pain Present Pain Reported Location Lower Back Intensity 1 Scale Used Numeric (0 - 10) M4 OT- IP ADL's Start: 08/11/21 14:44 Freq: Status: Active Protocol: Document 08/11/21 10:11 [facility] (Rec: 08/11/21 15:01 [facility] [id number]) OT [id number] Comments OT Self-Feeding Comments NOt at meal time. OT ADL-Grooming General Evaluation Grooming Ability Independent OT ADL-Oral Care Comments Oral Care Comments VC to spit into a cup or hinge at her hips to spit to best follow her back precautions. OT ADL-Dressing Comments OT Dressing Comments Pt states her will assist with compression stocking. Educated pt on use of dampener to assist for LB dressing needs. OT ADL-Toileting General Evaluation Toileting Ability Standby Assistance Comments OT Toileting Comments Pt would benefit form a bidet or toilet paper aid t assist with hygiene needs. Pt agreed would be best to wear pads or brief at night. OT ADL-Bathing Comments OT Bathing Comments Not performed. M5 OT- IP IADL's Start: 08/11/21 14:44 Freq: Status: Active Protocol: Document 08/11/21 10:11 [facility] (Rec: 08/11/21 15:01 [facility] [id number]) OT-Instrumental Activities of Daily Living Home Safety Awareness Home Safety Comments Pt a bit groggy and forgetful at this time and would be best for her to assist wit her needs.Nursing notified. M6 OT- IP Functional Cognition Start: 08/11/21 14:44 Freq: Status: Active Protocol: Document 08/11/21 10:11 [facility] (Rec: 08/11/21 15:01 [facility] [id number]) Cognitive Factors Limiting Selfcare Function Cognitive Ability Level of Alertness Alert Patient Orientation Name,Place,Situation Attention Span Ability Capable of Focused Attention, Capable of Sustained Attention Ability to Follow Commands Able to Follow One Step Commands Safety Awareness Decreased Ability to Apply Precautions,Underestimates Need for Assistance Cognitive Comments Cognitive Assessment Comments Pt needing reminders for back precautions and log rolling and morales not seem to recall even thought per pt this is her 6th back surgery. M7 OT- IP Mobility and Balance Start: 08/11/21 14:44 Freq: Status: Active Protocol: Document 08/11/21 10:11 [facility] (Rec: 08/11/21 15:01 [facility] [id number]) OT- Bed Mobility Assessment Rolling Level of Assistance Contact Guard Assistance Supine to Sit Supine to Sit Assist Moderate Assistance Sit to Supine Sit to Supine Assist Moderate Assistance OT-Transfer Assessment Sit to and From Stand Sit to and from Stand Minimal Assistance,Moderate Assistance Transfers Transfer Ability Minimal Assistance Technique Transfer Destination Bed,Chair,Toilet Transfer Technique Stand Step Pivot Devices Transfer Assistive Devices Gait Belt,Front Wheeled Walker Comments Mobility Comments Able to go over log rolling and FWW safety with pt's . Pt insists on pulling on the FWW to stand instead on pushing up from surface sitting on. Therefore educated pt's to help keep the FWW steady if pt insisting on pulling up on the FWW to stand. It would be beneficial for pt and to practice more for mobility needs. OT- Gait Assessment Gait Gait Assistance Required: Contact Guard Assist Assistive Devices Assistive Device Gait Belt,Front Wheeled Walker OT- Balance Assessment Sitting Balance and Reactions Static Sitting Balance Ability Good Dynamic Sitting Balance Ability Good Standing Balance and Reactions Static Standing Balance Ability Fair M8 OT- IP Objective Assessments Start: 08/11/21 14:44 Freq: Status: Active Protocol: Document 08/11/21 10:11 [facility] (Rec: 08/11/21 15:01 [facility] [id number]) OT-Muscle Tone Assessment Muscle Tone WNL Yes M9 OT- IP Assessment and Plan Start: 08/11/21 14:44 Freq: Status: Active Protocol: Document 08/11/21 10:11 [facility] (Rec: 08/11/21 15:01 [facility] [id number]) OT Summary Assessment and Plan Potential Rehabilitation Potential Good Analytic Complexity at Evaluation Low Summary OT Impairments Pain,Balance,Functional Cognition,Functional Mobility, Grooming,Dressing,Toileting, Bathing,Toilet Transfers, Shower Transfers Progress Towards Goals Progressing Toward Goals Assessment Summary Pt low complexity and main barriers are a bit insistent on doing things her way and needing cues to follow her back precautions. Pt tends to forget, twist and needing reminders to push up from surfaces coming up to stand from , as pt insists on grabbing the FWW to stand. Able to initiate caregiver training with pt's and would benefit from more practice as pt is a bit groggy today. Pt to go home with medically stable. Goals Grooming Goal Independent Dressing Goal Minimal Assistance Toileting Goal Minimal Assistance Bathing Goal Minimal Assistance Toilet Transfer Goal Independent Shower Transfer Goal Contact Guard Assistance Patient/Caregiver Education Goal Caregiver Independent Assisting Patient Days to Meet Goals 5 Frequency of Treatment Frequency Of Treatment Once a Day Treatment Plan OT Treatment Plan ADL Training,Functional Cognition Training,Functional Mobility,Patient/Family Education,Discharge Planning Other Treatment Recommendations and Next shower if still here Treatment Focus Discharge Recommendations OT Discharge Recommendations Home with 23/10 Assist Available Transportation Needs at Discharge Private Vehicle
[2021-08-11 11:00] VITALS: BP 147/55; PULSE 57; RESP 18; TEMP 36.6; O2SAT 98
--- NOTE | 2021-08-11 14:05 | PT.IPTN ---
Current Diagnoses Acute posthemorrhagic anemia (08/10/21) Type 2 diabetes mellitus without complications (08/10/21) Obesity, unspecified (08/10/21) Essential (primary) hypertension (08/10/21) Spinal stenosis, lumbar region with neurogenic claudication (08/10/21) Arthrodesis status (08/10/21) Surgery Performed Operation Date: 08/10/21 11:15 Actual Procedures p L2-3 TLIF w/ extension of hardware L2 to Previous L3-S1 fusion - Marilu Moise MD Physical Therapy Treatment Note M2 PT-IP Current Condition Start: 08/11/21 10:17 Freq: Status: Active Protocol: Document 08/11/21 10:18 BC (Rec: 08/11/21 10:31 BC [id number]) Physical Therapy Current Condition Current Condition Evaluation Date 08/11/21 Treatment Diagnosis gait abnormality Onset Date 08/10/21 M3 PT-IP Subjective Start: 08/11/21 10:17 Freq: Status: Active Protocol: Document 08/11/21 13:40 [place] (Rec: 08/11/21 15:38 KS [id number]) Subjective Physical Therapy Visit Type Type Treatment Note Visit Start Time 13:40 Visit Stop Time 14:05 Total Visit Minutes 25 Number of [employer] WORKER Visits 1 Physical Therapy Visit Comments Patient Comments Pt agreeeable to working w/ therapy and wanting to go home . M4 PT-IP Mobility and Gait Start: 08/11/21 10:17 Freq: Status: Active Protocol: Document 08/11/21 13:40 KS (Rec: 08/11/21 15:38 KS [id number]) PT-Transfer Assessment Sit to and From Stand Sit to and from Stand Standby Assistance Equipment Transfer Assistive Device Gait Belt,Front Wheeled Walker Transfers Transfer Destination Chair Transfer Technique Pt ambulated w/ FWW Transfer Ability Level of Assist Standby Assistance Comments Mobility Comments Pt in chair upon arrival and agreeable to complete stair training, first sit<>Stand SBA w/ FWW and ambulated to toilet. After voiding, pt ambulated to w/c for transport to stairs for energy conservation. Pt ascended/ descended 3 steps w/ bilateral rails SBA w/ step to pattern. Pt confirms she has 3 steps w / bilateral rails, landing, than 3 additional steps to enter home. W/c most distance back to room, but ambulated final ~30 ft SBA back to chair SBA. Pt feels ready to go home w/ spouse and family assisting as needed. Gait Assessment Gait Gait Assistance Required: Standby Assistance,1 Person Assist Distance (Feet) 50 Assistive Devices Assistive Device Gait Belt,Front Wheeled Walker Orthotic/Prosthetic Devices or Brace: No Gait Deviations General Gait Pattern Decreased Stride Length, Decreased Feet Clearance,Wide Based Gait Comments Gait Comments Ambulation rachel is slow but no LOB. Reports pain improves with upright stance and sitting in chair vs EOB. Stair Climbing Assessment Evaluation Level of Assist On Stairs Standby Assistance,1 Person Assistance Devices Stair Climbing Assistive Devices Left Railing,Right Railing Technique/Endurance Stair Climbing Direction Ascend and Descend Stair Climbing Technique Step to Step Number of Steps Climbed 3 Stair Climbing Set # Repetitions (reps) 1 Comments Stair Climbing Comments Pt ascended/descended 3 steps w/ bilateral hand rails and step to pattern SBA, no cues required. PT-Balance Assessment Sitting Balance and Reactions Static Sitting Balance Ability Normal Dynamic Sitting Balance Ability Normal Standing Balance and Reactions Static Standing Balance Ability Good Dynamic Standing Balance Ability Fair Device Used FWW M5 PT-IP Objective Assessments Start: 08/11/21 10:17 Freq: Status: Active Protocol: Document 08/11/21 10:18 BC (Rec: 08/11/21 10:31 BC [id number]) Orientation Orientation/Cognition Level of Alertness Alert Orientation Name,Date,Place,Situation Safety Awareness Understands Safety Issues Gross Range of Motion Upper Extremity ROM Assessment Within Functional Limits Lower Extremity ROM Assessment Within Functional Limits Strength Upper Extremity Strength Assessment Within Functional Limits Lower Extremity Strength Assessment Within Functional Limits Comments Strength Comments Grossly functional UE strength - no formal MMT BLE strength 4+ to 5/5 Coordination Assessment Gross Coordination Gross Coordination WNL Sensation Assessment Comments Sensation Comments Reports burning/tingling across pelvis bilaterally. Calls this sciatica and states she has had it for awhile. Muscle Tone Muscle Tone WNL Yes M6 PT-IP Treatment Start: 08/11/21 10:17 Freq: Status: Active Protocol: Document 08/11/21 13:40 KS (Rec: 08/11/21 15:38 KS [id number]) Physical Therapy Treatment Education Education Provided Precautions,Post-Op Packet, Safety Brace Education Patient M7 PT-IP Assessment and Plan Start: 08/11/21 10:17 Freq: Status: Active Protocol: Document 08/11/21 13:40 KS (Rec: 08/11/21 15:38 KS [id number]) PT Summary Assessment and Plan Potential Rehabilitation Potential Excellent Status of Condition at Evaluation Stable Summary Impairments Pain Progress Towards Goals Progressing Toward Goals Assessment Summary Pt SBA for mobility, transfers , ambulation, and stairs today . Able to ambulate 50 ft w/ FWW and recall 3/3 spinal precautions. She feels safe and eager to return home today and confirms she has all necessary DME and family to assist. Pt will benefit from outpatient therapy when appropriate to improve strength, gait, and activity tolerance. Goals Bed Mobility Goal Standby Assistance Transfer Goal Independent Gait Goal Independent Gait Distance 100 Other Goals Pt will ascend/descend full flight of stairs with railing and CGA to SBA. Days to Meet Goals 3 Frequency of Treatment Frequency Of Treatment Twice a Day Treatment Plan Physical Therapy Treatment Plan Bed Mobility Training,Transfer Training,Gait Training, Therapeutic Exercise,Balance Retraining,Post Op Education, Discharge Planning, Neuromuscular Re-ed, Coordination Retraining Precautions Lumbar Precautions Log Roll,No Twisting,Limit Bending,Lifting Restriction of 10 lbs,Gait Belt above Incisional Area Recommendations To Nursing Amount of Assist Needed Standby Assistance Discharge Recommendations PT Discharge Recommendations Home with Assistance Transportation Needs at Discharge Private Vehicle
--- NOTE | 2021-08-11 16:30 | P.DS_ITS ---
History of Present Illness History of Present Illness Date Patient Seen: 08/11/21 Time Patient Seen: 07:30 Chief complaint: TLIF *OPB* Narrative: Operative Date/Time/Diagnoses Date of procedure: 08/10/21 Time of procedure: 14:00 Pre-op diagnosis: 1. L2-3 spinal stenosis with neurogenic claudication 2. History of L3-S1 fusion with instrumentation Post-op diagnosis: same Procedure & Clinicians Procedure: 1. L2-3 posterolateral and posterior interbody fusion 2. L2-3 posterior interbody cage placement 3. L3-4 revision laminectomy with exploration of fusion 4. L2-3, L3-4 posterior segmental instrumentation with pedicle screw placement 5. L3-4 posterolatearl fusion 6. [place] of bone marrow from iliac crest through a separate incision 7. Utilization of microsurgical technique and operating microscope Same procedure as scheduled: Yes Indications: Patient has been having chronic back pain and worsening lumbar radiculopathy and symptoms of neurogenic claudication. Patient had history of lumbar fusion and has been doing well until approximately 9 months ago.? Patient has symptoms of neurogenic claudication along with radiculopathy.? Patient's MRI showed significant progress L2-3 spinal stenosis due to adjacent level disease. Patient failed multiple conservative management with worsening pain weakness and numbness in her lower extremity.? Patient has been having difficulty performing activity of daily living.? After discussing risks benefits of treatment options, patient elected proceed with surgery. Surgeon: Marilu Moise Marketing Finance Specialist: Sharon Jennings Click Yes if Unassisted: No Anesthesia Type: General Operative Notes Closure Type: primary Specimen(s): none sent Prosthetic devices, grafts, tissues, transplants, or devices: Globus Revolve screws, Globus connecting hardware for revision posterior instrumentation Applied: catheter Estimated Blood Loss (mL): 50 Blood products transfused: none Discharge Providers Provider Date of admission: 08/10/21 09:28 Discharge Date: 08/11/21 Primary care physician: Karel Doe MD Consults: 08/10/21 19:07 Consult to Occupational Therapy Evaluate & Treat Comment: Physician Instructions: Evaluate and treat Consult to Physical Therapy Evaluate & Treat Comment: Physician Instructions: Evaluate and Treat Discharge provider: Sharon Jennings PA-C Summary Hospital Course Discharge Diagnosis: s/p lumbar fusion Acute anemia d/t expected surgical blood loss HTN DM Obesity Hospital Course: Please see today's progress note for details. Exam Vital Signs (past 8 hours): - 08/11/21 08:45 08/11/21 11:00 Temperature 97.8 F Pulse Rate 76 57 L Respiratory Rate 18 Blood Pressure 146/67 H 147/55 H Pulse Oximetry 98 Oxygen Delivery Method Room Air Objective Labs Result Diagrams: 08/11/21 05:37 Labs: Laboratory Results - last 24 hr 08/11/21 05:37 Hgb 9.9 L Hct 28.4 L PFSH Medical History (Updated 08/11/21 @ 10:24 by Sharon Jennings PA-C) Anemia (~2010) Anemia in chronic kidney disease Chicken pox Chronic back pain (~2011) Chronic pruritic rash in adult Diabetes Diabetic retinopathy Edema GERD (gastroesophageal reflux disease) HLD (hyperlipidemia) HTN (hypertension) Iron deficiency anemia Kidney disease (~2018) Measles Mumps Obesity (BMI 30.0-34.9) Psoriasis Renal cyst, right Stage 2 chronic kidney disease Type 2 diabetes mellitus (~1988) Unspecified osteoarthritis, unspecified site (~2019) Surgical History (Updated 08/11/21 @ 10:24 by Sharon Jennings PA-C) Anesthesia History of back surgery History of cataract removal with insertion of prosthetic lens (~2014) History of cholecystectomy History of colonoscopy History of laparoscopy (~1977) History of lumbar fusion (01/29/17) Hx of microdiscectomy (11/07/18) Hx of tonsillectomy S/P thyroid biopsy (04/25/17) Family History (Updated 02/13/21 @ 21:27 by Raven Mariee) Father Diabetes mellitus Brother Diabetes mellitus Grandmother Diabetes mellitus Grandfather Stroke Social History household members: spouse Smoking Status: Never smoker alcohol intake: never Discharge Assessment & Plan Assessment and Plan Assessment: s/p lumbar fusion Acute anemia d/t expected surgical blood loss HTN DM Obesity Plan of Treatment: Discharge home, Vistaril and hydrocodone for pain control. Discharge Plan Discharge Plan Patient Disposition: Home Discharge orders & Medications Prescriptions: New docusate sodium 100 mg Capsule 100 mg PO BID PRN (Reason: constipation) Qty: 60 1RF hydrocodone-acetaminophen 10-325 mg Tablet 1 tab PO Q4HR PRN (Reason: pain, severe) Qty: 60 0RF hydroxyzine pamoate 25 mg Capsule 25 mg PO Q4HR PRN (Reason: Muscle Spasm) Qty: 120 1RF Continued lisinopril 20 MG tablet 20 mg PO QAM Qty: 90 3RF diltiazem HCl 300 MG capsule,extended release 24hr 300 mg PO QAM Qty: 90 3RF aspirin 81 MG tablet,chewable 81 mg PO QDAY Qty: 0 0RF atorvastatin [Lipitor] 20 MG tablet 20 mg PO HS Qty: 0 0RF cyanocobalamin (vitamin B-12) [Vitamin B-12] 500 MCG tablet 1 tab PO Q DAY Qty: 0 0RF glipizide 5 MG tablet 10 mg PO AMAC Qty: 0 0RF hydrochlorothiazide 12.5 MG tablet 12.5 mg PO QDAY Qty: 0 0RF Novolin N Flexpen 100 unit/mL (3 mL) Insulin Pen 7 unit SUBCUT QAM 0RF Label Comments: 4 units 5/10 metoprolol tartrate 25 mg Tablet 25 mg PO BID 0RF Lactobacillus acidophilus 1 tab PO DAILY 0RF metformin 1,000 mg tablet 1,000 mg PO DAILY 0RF (DME) Blood Glucose Test Strip See Rx Instructions .ROUTE .MEDSUPPLY Qty: 10 0RF Rx Instructions: As directed CMP Estradiol Vaginal Pearls 10mcg 1 ea vaginal 2XW Qty: 30 3RF Discontinued acetaminophen [Tylenol Extra Strength] 500 MG tablet 500 mg PO QDAYP PRN (Reason: Pain) Qty: 0 0RF Follow up/Referrals: Marilu Moise MD [Physician] - As previously scheduled (Follow up with Dr Moise on 08/23/2021 @ 3:00 pm at [facility]) Karel Doe MD [Primary Care Provider] - Diet/Activity/Treatments Diet: Diet as Tolerated Activity: Walk frequently! No deep bending or twisting at the waist. No lifting more than 10 pounds. Cold/Heat Therapy: Heating pad to back as needed for pain. Skin/Wound/Dressing Care Report to your healthcare provider any signs of infection, such as:: chills, fever, night sweats, unusual drainage and unusual redness Dressing: May shower - keep dressing as dry as possible. May change to clean, dry gauze if it becomes wet inside. No bathing or otherwise soaking incisions. Do not apply any creams, lotions or ointments to incisions. Visit Report/Discharge Packet Instructions: DI for Prescription Opioid Use, DI for Transforaminal Lumbar Interbody Fusion Stand Alone Forms: Surgery Discharge Discharge Data Primary Care Provider: Karel Doe VTE Deep Vein Thrombosis/Pulmonary Embolism Present on Admission: No
--- NOTE | 2021-08-11 16:47 | PC.NURSE ---
Discharge note: Patient cleared by PT. Discharge instructions given to patient, discussed importance of F/U with scheduled Ortho appt, dressing care, mobility precautions, and signs of worsening symptoms. Patient and spouse verbalized understanding of instructions. Patient home via private vehicle accompanied by spouse, boarding [place] at 1630. Rx to be picked up at [facility].
== END 2021-08-11 16:50 | disposition home or self-care (01) | DRG 454 ==
LOC: OR 09:29 → AC 09:29
PROVIDERS: Admitting Provider Orthopaedic Surgery Orthopaedic Surgery of the Spine; Family Provider Family Medicine; PCP Family Medicine; Referring Provider Orthopaedic Surgery Orthopaedic Surgery of the Spine; Visit Provider Orthopaedic Surgery Orthopaedic Surgery of the Spine
PROC: 0SG00AJ Fusion of Lumbar Vertebral Joint with Interbody Fusion Device, Posterior Approach, Anterior Column, Open Approach (ICD-10-PCS; principal; 2021-08-10 11:15)
DX: M48.062 Spinal stenosis, lumbar region with neurogenic claudication (principal); M96.0 Pseudarthrosis after fusion or arthrodesis; M54.16 Radiculopathy, lumbar region; M96.1 Postlaminectomy syndrome, not elsewhere classified; E11.9 Type 2 diabetes mellitus without complications; I10 Essential (primary) hypertension; E78.5 Hyperlipidemia, unspecified; Z20.822 Contact with and (suspected) exposure to COVID-19; Z79.4 Long term (current) use of insulin; Z79.84 Long term (current) use of oral hypoglycemic drugs; Z98.1 Arthrodesis status
CPT/HCPCS: 72100; 76000; 82962; 85014; 85018; 97116; 97161; 97165; 97530; 97535; C1776; C9803; U0003; C9290; J0171; J0330; J0690; J2405; J2704; J3010

== ENCOUNTER → 2022-08-17 12:08 | Outpatient (CLI) | payer MEDICARE, SELFPAY ==
[2021-08-10 19:02] VITALS: BMI 31.2
--- NOTE | 2022-08-17 | DI.US.S_ITS ---
PROCEDURE: US PERIPH VENOUS LOW EXTREM LT INDICATIONS: LEFT LEG EDEMA TECHNIQUE: Real-time imaging, as well as color and pulse Doppler interrogation, were performed of the lower extremity deep veins from the inguinal ligament to the popliteal fossa. COMPARISON: None. FINDINGS: The common femoral, femoral and popliteal veins are normally compressible, and free of intraluminal thrombus. Color and pulse Doppler demonstrate normal phasic intraluminal flow. There is normal augmentation response to distal compression maneuver. IMPRESSION: No deep venous thrombosis. Dictated by: Sheila Rothman M.D. on 08/17/2022 at 16:41 Approved by: Sheila Rothman M.D. on 08/17/2022 at 16:41
== END ==
PROVIDERS: Family Provider Family Medicine; PCP Family Medicine; Referring Provider Family Medicine; Visit Provider Family Medicine
DX: R60.0 Localized edema (principal)
CPT/HCPCS: 93971

== ENCOUNTER → 2022-09-04 10:36 | Outpatient (CLI) | payer MEDICARE, SELFPAY ==
[2021-08-10 19:02] VITALS: BMI 31.2
--- NOTE | 2022-09-04 | DI.US.S_ITS ---
PROCEDURE: US THYROID INDICATIONS: NONTOXIC SINGLE THYROID NODULE TECHNIQUE: Real-time scanning was performed of the thyroid gland, with image documentation. COMPARISON: None. FINDINGS: Right: Thyroid lobe measures 6.2 x 4.1 x 4.5 cm Left: Thyroid lobe measures 3.1 x 1.6 x 1.9 cm Isthmus: 5 mm thick. Dominant right thyroid nodule measures 4.9 x 3.4 x 4 cm. It is solid cystic with hypoechoic components. TR 3. Mildly suspicious. Right upper/mid nodule is present that is predominantly cystic, measuring 1.2 x 0.9 x 1.6 cm. Multiple cystic nodules are also seen in the left thyroid lobe measuring up to 1 cm. These do not require dedicated follow-up. IMPRESSION: Dominant solid cystic right thyroid nodule meets criteria for sampling. ACR TI-RADS definitions and recommendations: TI-RADS 1 (benign): 0 points. FNA not needed. TI-RADS 2 (not suspicious): 2 points. FNA not needed. TI-RADS 3 (mildly suspicious): 3 points. * FNA if 2.5 cm or larger, follow up if 1.5 cm or larger (at 1, 3, and 5 years). TI-RADS 4 (moderately suspicious): 4-6 points. * FNA if 1.5 cm or larger, follow up if 1 cm or larger (at 1, 2, 3, and 5 years). TI-RADS 5 (highly suspicious): 7 points or more. * FNA if 1 cm or larger, follow up if 0.5 cm or larger (every year for 5 years). Dictated by: Prasad Parikh M.D. on 09/04/2022 at 13:44 Approved by: Prasad Parikh M.D. on 09/04/2022 at 13:49
== END ==
PROVIDERS: Family Provider Family Medicine; PCP Family Medicine; Referring Provider Family Medicine; Visit Provider Family Medicine
DX: E04.1 Nontoxic single thyroid nodule (principal)
CPT/HCPCS: 76536

== ENCOUNTER 2022-12-13 12:57 | Outpatient (CLI) | payer MEDICARE, SELFPAY ==
[2021-08-10 19:02] VITALS: BMI 31.2
[2022-12-13] VITALS (8 sets, daily range): BP systolic 156–196; BP diastolic 57–77; PULSE 51–66; RESP 14–22; TEMP 37.1; O2SAT 96–100
--- NOTE | 2022-12-13 12:59 | DI.RAD.S_ITS ---
PROCEDURE: PAIN L INTERLAMINAR/CAUDAL INJ INDICATIONS: RADICULOPATHY COMPARISON: [facility], CR, XR LUMBAR SPINE 2 OR 3 VIEWS, 09/21/2022, 13:45. FINDINGS: A caudally placed catheter is seen within the sacral canal. The position of the tip of the catheter was confirmed with injection of a small amount of iodinated contrast. IMPRESSION: Intraprocedural examination within normal limits. Dictated by: Prince Suarez M.D. on 12/13/2022 at 17:39 Approved by: Prince Suarez M.D. on 12/13/2022 at 17:39
[2022-12-13] MEDS: MIDAZOLAM 2 MG/2 ML VIAL 1 MG IV (13:45)
[2022-12-13] MEDS: IOPAMIDOL 15 ML VIAL 3 ML INJ (13:50)
[2022-12-13] MEDS: DEXAMETHASONE 10 MG/ML VIAL INJ (13:50)
--- NOTE | 2022-12-13 16:38 | P.PCN_ITS ---
Date/Time/Diagnoses Date of procedure: 12/13/22 Time of procedure: 13:30 Procedure Notes Physician: Twan Ramsey Total Fluoroscopy time (seconds): 15 Total sedation minutes: 15 Procedure in detail & Post-procedure care: Caudal Epidural Steroid Injection Indications: Cleo is presenting for treatment of lumbar radiculopathy with low back and leg pain. Preoperative diagnosis: Lumbar radiculopathy Postoperative diagnosis: Same Focused Examination: Ax3 Mood and affect are normal Vital Signs: VSS ASA: 2 FSBS: 195 Consent: Following review of allergies and potential side effects/complications, including, but not necessarily limited to, infection, allergic reaction, local tissue breakdown, stroke, temporary or permanent nerve injury, paralysis, and possible , the patient indicated that they understood and agreed to proceed .? An informed consent document was signed by the patient, witnessed by a nurse and placed in the patient's chart.? Additionally, other treatment options including medications and physical therapy were reviewed with the patient. All questions were answered. Site was then marked. Anesthesia: After review of previous anesthetic history and IV conscious sedation, the patient was deemed safe to proceed with today's procedure with IV conscious sedation. IV sedation was accomplished with midazolam 1 mg administered by the RN after order by Dr. Ramsey. Sedation was titrated to patient comfort during the course of the procedure. Patient remained responsive to all verbal commands. Position: Prone Monitoring: NIBP, Pulse oximetry, 3 lead EKG Needle used: 17 gauge Touhy with 19 gauge TheraCath Epidural Catheter Contrast: Isovue 300-M 2mL Injectate: Dexamethasone 10 mg with 1% lidocaine 2 mL and normal saline 2 mL Technique: The skin was prepped with chloraprep and then draped in a sterile fashion. Time out was performed as per protocol. Oxygen applied via NC. The entry point for entering/approaching the epidural space by a caudal approach through the sacral hiatus was identified. Skin and subcutaneous structures of the needle entry site was then infiltrated with 3 mL of lidocaine 1%. Under AP and lateral control, the needle was guided through the sacral hiatus to the S3 level. The catheter was then advanced to L5-S1 using intermittent fluoroscopy. Contrast was then injected and the spread was consistent with the epidural space. There was no evidence for intravascular or intrathecal uptake. After negative aspiration, the above-mentioned injectate was then slowly administered and the needle withdrawn. The patient expressed no unusual discomfort or paresthesias during needle positioning or injection. Band-Aids applied to injection sites. EBL: less than 1 ml Complications: None Post Procedure: Patient was taken to the recovery and monitored. The patient was provided a Pain Log to continue to record the patient's response to the target- specific procedure prior to the patient's follow-up visit with the referring physician. Patient was stable upon discharge. Detailed post procedure instructions were provided. Patient was asked to call in the event of worsening pain, fever, weakness, numbness or bladder or bowel incontinence.
== END 2022-12-13 14:23 | disposition home or self-care (01) ==
PROVIDERS: Family Provider Family Medicine; PCP Family Medicine; Referring Provider Anesthesiology; Visit Provider Anesthesiology
DX: M54.16 Radiculopathy, lumbar region (principal)
CPT/HCPCS: 62323; 82962; 99152; J1100; J2250

== ENCOUNTER 2023-07-25 10:51 | Outpatient (CLI) | payer MEDICARE, SELFPAY ==
[2021-08-10 19:02] VITALS: BMI 31.2
[2023-07-25] VITALS (7 sets, daily range): BP systolic 167–224; BP diastolic 76–88; PULSE 54–74; RESP 10–18; O2SAT 97–100
--- NOTE | 2023-07-25 11:30 | DI.RAD.S_ITS ---
PROCEDURE: PAIN SI JOINT INJECTION INDICATIONS: SI JOINT DYSFUNCTION COMPARISON: None. FINDINGS: Fluoroscopic spot filming was performed to verify placement of needles at the sacroiliac joint as labeled on the films. Appropriate location(s) of the needle tip(s) was confirmed by injection of iodinated contrast. IMPRESSION: Intra procedural guidance. Dictated by: Prasad Parikh M.D. on 07/25/2023 at 16:48 Approved by: Prasad Parikh M.D. on 07/25/2023 at 16:49
[2023-07-25] MEDS: MIDAZOLAM 2 MG/2 ML VIAL 1 MG IV (12:10)
--- NOTE | 2023-07-25 12:10 | PC.NURSE ---
Patient reports that she took her Glipazide, Metformin and 6units of novolog at 1045, Patient checked her own blood sugar in pre procedure room was 199. Patient states she waited to taker her diabetic medications as she was afraid her sugars would drop and she does not tolerate being under 100. Dr Ramsey aware.
[2023-07-25] MEDS: DEXAMETHASONE 10 MG/ML VIAL INJ (12:14)
[2023-07-25] MEDS: iopamidoL 15 ML VIAL 3 ML INJ (12:14)
[2023-07-25] MEDS: BUPIVACAINE 0.5% (PF) 10 ML VIAL 2 ML INJ (12:14)
--- NOTE | 2023-07-25 12:25 | P.PCN_ITS ---
Date/Time/Diagnoses Date of procedure: 07/25/23 Time of procedure: 11:30 Procedure Notes Physician: Twan Ramsey Total Fluoroscopy time (seconds): 6 Total sedation minutes: 8 Procedure in detail & Post-procedure care: Right Sacroiliac Joint Injection Indications: Cleo is presenting for treatment of SI joint dysfunction with low back/buttock pain. Preoperative diagnosis: SI joint dysfunction Postoperative diagnosis: Same Focused Examination: Ax3 Mood and affect are normal Vital Signs: VSS ASA: 3 Consent: Following review of allergies and potential side effects/complications, including, but not necessarily limited to, infection, allergic reaction, local tissue breakdown, stroke, temporary or permanent nerve injury, paralysis, and possible , the patient indicated that they understood and agreed to proceed.? An informed consent document was signed by the patient, witnessed by a nurse and placed in the patient's chart.? Additionally, other treatment options including medications and physical therapy were reviewed with the patient. All questions were answered. Site was then marked. Anesthesia: After review of previous anesthetic history and IV conscious sedation, the patient was deemed safe to proceed with today's procedure with IV conscious sedation. IV sedation was accomplished with midazolam 1 mg administered by the RN after order by Dr. Ramsey. Sedation was titrated to patient comfort during the course of the procedure. Patient remained responsive to all verbal commands. Position: Prone Monitoring: NIBP, Pulse oximetry, 3 lead EKG Needle used: 22 ga, 3.5 inch spinal Contrast: 2 mL Isovue M-300 Injectate: Dexamethasone 5 mg with 0.5% bupivacaine 2 mL Technique: The skin was prepped with chloraprep and then draped in a sterile fashion. Time out was performed as per protocol. Oxygen applied via NC. Skin and subcutaneous structures of the needle entry site was then infiltrated with 5 mL of lidocaine 1%. Under AP and lateral fluoroscopic control, the spinal needle was guided into the right sacroiliac joint. 1 mL contrast was injected and was consistent with intra-articular placement. There was no evidence for intravascular uptake. After negative aspiration, the above-mentioned injectate was then slowly administered and the needle withdrawn. The patient expressed no unusual discomfort or paresthesias during the injection. EBL: less than 1 ml Complications: None Post Procedure: Patient was taken to the recovery and monitored. The patient was provided a Pain Log to continue to record the patient's response to the target- specific procedure prior to the patient's follow-up visit with the referring physician. Patient was stable upon discharge. Detailed post procedure instructions were provided. Patient was asked to call in the event of worsening pain, fever, weakness, numbness or bladder or bowel incontinence.
== END 2023-07-25 12:40 | disposition home or self-care (01) ==
PROVIDERS: Family Provider Family Medicine; PCP Family Medicine; Referring Provider Anesthesiology; Visit Provider Anesthesiology
DX: M53.3 Sacrococcygeal disorders, not elsewhere classified (principal)
CPT/HCPCS: 27096; G0260; J1100; J2250

== ENCOUNTER → 2024-01-31 13:45 | Outpatient (CLI) | payer MEDICARE, SELFPAY ==
[2023-09-13 10:36] VITALS: BMI 31.2
[2024-01-31] VITALS (9 sets, daily range): BP systolic 165–215; BP diastolic 68–89; PULSE 57–71; RESP 12–20; TEMP 36.3; O2SAT 96–100
--- NOTE | 2024-01-31 14:50 | DI.RAD.S_ITS ---
PROCEDURE: PAIN L INTERLAMINAR/CAUDAL INJ INDICATIONS: L4/5 TL ANTONIO COMPARISON: [facility], , PAIN L INTERLAMINAR/CAUDAL INJ, 12/13/2022, 13:43. FINDINGS: Fluoroscopic spot filming was performed to verify placement of spinal needles at the L4-L5 level(s), as labeled on the films. Appropriate location(s) of the needle tip(s) was confirmed by injection of iodinated contrast. IMPRESSION: L4-L5 injection, please see operative note for full details. Dictated by: Prasad Parikh M.D. on 01/31/2024 at 17:23 Approved by: Prasad Parikh M.D. on 01/31/2024 at 17:23
[2024-01-31] MEDS: MIDAZOLAM 2 MG/2 ML VIAL 1 MG IV ×2 (15:46→15:51)
[2024-01-31] MEDS: DEXAMETHASONE 10 MG/ML VIAL INJ ×2 (15:49→15:57)
[2024-01-31] MEDS: BUPIVACAINE 0.25% (PF) VIAL 2 ML INJ (15:49)
[2024-01-31] MEDS: iopamidoL 15 ML VIAL 3 ML INJ (15:50)
[2024-01-31] MEDS: BETAMETHASONE 30 MG/5 ML MDV 12 MG INJ (15:50)
--- NOTE | 2024-01-31 16:07 | P.PCN_ITS ---
Date/Time/Diagnoses Date of procedure: 01/31/24 Time of procedure: 16:07 Pre-procedure diagnosis: 1. HNP WITH RADICULAR FEATURES, 2. MULTILEVEL CENTRAL STENOSIS, Post-procedure diagnosis: same Procedure Notes Procedure: 1. FLUOROSCOPICALLY GUIDED CONTRAST CONTROLLED INTERLAMINAR EPIDURAL STEROID INJECTION -L4/5 Indications: Cleo is referred by Dr. Doe for treatment of Bilateral Foraminal Stenosis R>L LE symptoms. Physician: Maxi Duque Total Fluoroscopy time (seconds): 9 Total sedation minutes: 11 Complications: none Procedure in detail & Post-procedure care: FINDINGS Multilevel Central Spinal Stenosis with Nerve Root Compression DESCRIPTION OF PROCEDURE Fluoroscopically guided, contrast-controlled L4/5 translaminar epidural steroid injection. Following review of allergy and review of potential side effects and complications, including, but not necessarily limited to, infection, allergic reaction, local tissue breakdown, temporary as well as permanent nerve injury, paralysis, stroke and possible , the patient indicated that the patient understood and agreed to proceed. An informed consent document was signed by the patient, witnessed by a nurse, and placed in the patient's chart. Additionally, other treatment options including modalities, medications, and physical therapy were reviewed with the patient. After review of previous anaesthesic history and IV conscious sedation the patient was deemed safe to proceed with today?s procedure with IV conscious sedation as ASA class II designation. Safety time-out was performed to confirm patient ID, procedure to be performed and site of procedure. IV sedation was accomplished with a combination of 2mg of Versed was administered by the RN after DO order, titrated to patient comfort during the course of the procedure while the patient remained responsive to all verbal commands In the prone position, following sterile prep and drape of the lumbar region, the L4/5 translaminar space was identified fluoroscopically. The skin was anesthetized via a 25-gauge, 1.5inch needle with 1% lidocaine solution. At this point, a 22-gauge short bevel spinal needle was atraumatically introduced and a dvanced under fluoroscopic guidance into the region of the L4/5 translaminar space. Depth was confirmed on lateral view. Radiological data, including multiple fluoroscopic views of the lumbar spine, reveal a spinal needle at the L4/5 translaminar space. Lateral views then show placement of the needle in the epidural space. Subsequent views show contrast material flowing superiorly and inferiorly in the epidural space. No vascular or intrathecal uptake is observed. At this point, using loss of resistance technique with saline and air, the epidural space was entered. This was confirmed following negative aspiration with injection of approximately 1.5cc of Isovue 200, showing excellent epidural flow without vascular or intrathecal uptake. At this point, 1cc of 1% lidocaine solution combined with 2cc or 10mg of dexamethasone and 6mg betamethasone was injected without incident. The patient tolerated the procedure well without signs or symptoms of complications prior to transfer to the recovery area continued monitoring without incident. The patient was then transferred to the recovery area where they were observed for an appropriate period of time after the injection. The patient reported a VAS score of 6 prior to the procedure and a post- procedure VAS of 0. POST OP INSTRUCTIONS The patient was provided a Pain Log to continue to record their response to the target-specific procedure prior to follow-up visit with their referring physician. Additionally, specific post-injection care instructions and a contact number to our office were provided if concerns arise regarding possible complications associated with the procedure are suspected.
== END ==
PROVIDERS: Family Provider Family Medicine; PCP Family Medicine; Referring Provider Physical Medicine & Rehabilitation; Visit Provider Physical Medicine & Rehabilitation
DX: M51.16 Intervertebral disc disorders with radiculopathy, lumbar region (principal); M48.061 Spinal stenosis, lumbar region without neurogenic claudication
CPT/HCPCS: 62323; 82962; 99152; J0702; J1100; J2250; J3490

== ENCOUNTER 2024-04-24 11:58 | Outpatient (CLI) | payer MEDICARE, SELFPAY ==
[2023-09-13 10:36] VITALS: BMI 31.2
[2024-04-24] VITALS (9 sets, daily range): BP systolic 140–187; BP diastolic 65–83; PULSE 51–70; RESP 14–19; TEMP 36.6; O2SAT 96–100
--- NOTE | 2024-04-24 12:01 | DI.RAD.S_ITS ---
PROCEDURE: PAIN SI JOINT INJECTION MONICA INDICATIONS: Bilateral SI joint injection COMPARISON: None. FINDINGS/IMPRESSION: Fluoroscopic spot filming was performed to verify placement of spinal needles at the bilateral sacroiliac joints levels, as labeled on the films. Appropriate locations of the needle tips were confirmed by injection of iodinated contrast. Approved by: Joe Lee M.D. on 04/24/2024 at 21:54
[2024-04-24] MEDS: MIDAZOLAM 2 MG/2 ML VIAL IV (13:28)
[2024-04-24] MEDS: iopamidoL 15 ML VIAL 3 ML INJ (13:36)
[2024-04-24] MEDS: BETAMETHASONE 30 MG/5 ML MDV 12 MG INJ (13:36)
[2024-04-24] MEDS: BUPIVACAINE 0.5% (PF) 10 ML VIAL 2 ML INJ (13:36)
--- NOTE | 2024-04-24 14:46 | PM.PROC.IR.1 ---
Date/Time/Diagnoses Date of procedure: 04/24/24 Time of procedure: 14:46 Pre-procedure diagnosis: Sacroiliac joint pain/DJD Post-procedure diagnosis: same Procedure Notes Procedure: Fluoroscopic guided contrast controlled bilateral sacroiliac joint injection Indications: Cleo is referred by Dr. Doe for treatment of bilateral sacroiliac joint DJD Physician: Maxi Duque Total Fluoroscopy time (seconds): 15 Total sedation minutes: 20 Complications: none Procedure in detail & Post-procedure care: Description of procedure Fluoroscopic guided, contrast controlled bilateral sacroiliac joint injection Following review of allergies and review of potential side effects and complications, including, but not necessarily limited to, infection, allergic reaction, local tissue breakdown, temporary as well as permanent nerve injury, paralysis, stroke and possible , the patient indicated that they understood and agreed to proceed. An informed consent was signed by the patient, witnessed by a nurse, and placed in the patient's chart. Additionally, other treatment options including modalities, medications, and physical therapy were reviewed with the patient. After review of previous anaesthesic history and IV conscious sedation the patient was deemed safe to proceed with today?s procedure with IV conscious sedation as ASA class II designation. Safety time-out was performed to confirm patient ID, procedure to be performed and site of procedure. IV sedation was accomplished with a combination of 2mg Versed were administered by the RN after DO order, titrated to patient comfort during the course of the procedure while the patient remained responsive to all verbal commands In the prone position following sterile prep and drape of the pelvic region, the hyper lucency on in the inferior aspect of the sacroiliac joint was identified fluoroscopically the skin was anesthetized be a 25 gauge 1.5 inch needle with approximately 2cc of 1% lidocaine solution. At this point, a 22 gauge 3 in spinal needle was atraumatically introduced and advanced under fluoroscopic guidance into the inferior aspect of the right sacroiliac joint. Following negative aspiration, approximately 0.3cc of Isovue-300 was injected confirming intra-articular placement without vascular uptake. Radiographic data, including multiple fluoroscopic views of the pelvis, reveals a spinal needle in the sacroiliac joint hyper lucent zone. Subsequent view show flow contrast tear superiorly and inferiorly within the joint capsule without vascular intrathecal uptake. At this point a total of 1cc of 0.5% Marcaine was combined with 1cc of 6mg of betamethasone was injected without incident. Attention was then refocused the left sacroiliac joint where the procedure was replicated. The procedure tolerated the procedure well without signs or symptoms of complications prior to transfer to the recovery area continued monitoring without incident. The patient was then transferred to the recovery area with a bur observed for an appropriate time after the injection. The patient reverted a vas score of 7 prior to the procedure and post-procedure vas of 1. Postop instructions The patient was provided with a pain like to continue to record the patient's response to the target specific procedure prior to the patient's follow-up visit with the referring physician. Additionally, specific post injection care instructions and a contact number to our office were provided if concerns arise regarding the possible complications associated with procedure are suspected.
== END 2024-04-24 14:20 | disposition home or self-care (01) ==
PROVIDERS: Family Provider Family Medicine; PCP Family Medicine; Referring Provider Physical Medicine & Rehabilitation; Visit Provider Physical Medicine & Rehabilitation
DX: M53.3 Sacrococcygeal disorders, not elsewhere classified (principal); M46.1 Sacroiliitis, not elsewhere classified
CPT/HCPCS: 27096; 77002; 99152; J0702; J2250

== ENCOUNTER → 2024-05-28 12:17 | Outpatient (CLI) | payer MEDICARE, SELFPAY ==
[2023-09-13 10:36] VITALS: BMI 31.2
[2024-05-30 14:39] LABS: Candida species Positive (Negative); Gardnerella vaginalis Negative (Negative); Trichomoas vaginalis Negative (Negative)
== END ==
PROVIDERS: Family Provider Family Medicine; PCP Family Medicine; Visit Provider Obstetrics & Gynecology
DX: N89.8 Other specified noninflammatory disorders of vagina (principal)
CPT/HCPCS: 87480; 87510; 87660

== ENCOUNTER → 2024-12-18 17:34 | Outpatient (ROUT) | payer MEDICARE, SELFPAY ==
[2023-09-13 10:36] VITALS: BMI 31.2
== END ==
PROVIDERS: PCP Family Medicine; Visit Provider Registered Nurse
DX: L03.90 Cellulitis, unspecified (principal); L30.9 Dermatitis, unspecified
CPT/HCPCS: 87070; 87075; 87102; 87205